=== PATIENT | female | born 1975 | race African-American/Black ===

== ENCOUNTER 2017-06-14 01:55 | Emergency (ER) | payer SELFPAY ==
[~2017-06-14] VITALS: Ht 160 cm; Wt 55.0 kg
[2017-06-14] MEDS ORDERED: IBUPROFEN 600MG TABLET PO ONE (08:45)
[2017-06-14 13:54] VITALS: BP 120/72
== END 2017-06-14 13:56 | disposition home or self-care (01) ==
LOC: ER 03:36
DX: B34.9 Viral infection, unspecified (principal)
CPT/HCPCS: 71045; 87804; 99285; Z7610